=== PATIENT | female | born 1945 | race Caucasian/White ===

== ENCOUNTER 2016-11-30 12:29 | Inpatient (IN) | payer MEDICARE ==
[2016-11-30] MEDS ORDERED: Sodium Chloride 0.9% 10 ML Syringe FLUSH PRN (13:02)
[2016-11-30] MEDS ORDERED: Ondansetron 4 MG/2 ML SDV IVPUSH PRN (13:15)
[2016-11-30] MEDS ORDERED: Iopamidol 612 MG/ML 100 ML Bottle IV PRN (13:30)
[2016-11-30] MEDS ORDERED: Sodium Chloride 0.9% 75 ML IV SCH (13:30)
[2016-11-30] MEDS ORDERED: Iohexol 300 MG/ML 30 ML Bottle PO ONE (13:44)
[2016-11-30] MEDS ORDERED: Iohexol 647 MG/ML 10 ML SDV PO ONE (14:15)
[2016-11-30] MEDS ORDERED: MVI, Adult with Vitamin K 10 ML, Chromium/Copper/Mang/Selen/Zn 1 ML in Dextrose 5%-Lact... IV ONE ×3 (16:00)
[2016-12-01] MEDS: Dextrose 5%-Lactated Ringers 1,000 ML IV SCH (02:33)
--- NOTE | 2016-12-01 08:37 | PN ---
DATE OF SERVICE: 12/01/2016 SUBJECTIVE: Stephanie did report abdominal pain after eating, in her right mid and lower quadrant. She has had no nausea or vomiting. Her oral intake was 1045. Urine output was 2125. CT scan was completed, and Radiology report was negative. REVIEW OF SYSTEMS: Remainder of review of systems negative for any pertinent positives and negatives. OBJECTIVE: GENERAL: Stephanie Winston is a 71-year-old female. She is alert and orientated. VITAL SIGNS: TPR 97.2, 63, 18, blood pressure 169/79. HEENT: Negative. NECK: Supple. HEART: Regular rate and rhythm. LUNGS: Clear. ABDOMEN: Remains to be tender in the right mid and lower quadrants. Extremities without peripheral edema. NEUROLOGIC: Intact. SKIN: Without rash. ASSESSMENT: Right lower quadrant abdominal pain, nausea and vomiting, status post Jus-en-Y gastric bypass surgery, malabsorption due to intolerance, vitamin B deficiency, vitamin D deficiency, lymphedema of right lower extremity and weight loss. PLAN: 1. N.p.o. 2. Schedule EGD with possible biopsies. 3. Case to follow. 4. IV sedation, Vamshi Wallace MD. 5. Robinul 0.4 mg IV on-call to OR. 6. We will evaluate and orders to be written post EGD. Aylin Rankin PA-C /[id number]
[2016-12-01] MEDS ORDERED: Glycopyrrolate 0.2 MG/ML 2 ML SYRINGE IVPUSH ONE (09:00)
[2016-12-01] MEDS ORDERED: Propofol 200 MG/20 ML SDV ONE (09:14)
[2016-12-01] MEDS ORDERED: fentaNYL 100 MCG/2 ML SDV ONE (09:14)
[2016-12-01] MEDS ORDERED: Midazolam 1 MG/ML 2 ML SDV ONE (09:14)
[2016-12-01] MEDS ORDERED: Lactated Ringers 1,000 ML ONE (10:22)
[2016-12-01] MEDS ORDERED: Sodium Chloride 0.9% 1,000 ML IV ONE (12:00)
[2016-12-01] MEDS ORDERED: Iron Sucrose Complex 500 MG in Sodium Chloride 0.9% 250 ML IV SCH (12:00)
[2016-12-01] MEDS: Lidocaine 2% 60 ML, Alum Hydrox/Mag Hydrox/Simeth 360 ML PO SCH ×4 (12:24→17:01)
[2016-12-01] MEDS ORDERED: Cyanocobalamin (Vitamin B12) 1,000 MCG/ML SDV IM ONE (13:00)
[2016-12-01] MEDS: Magnesium Sulfate/Water 2 GM in Premix Bag 1 BAG IV SCH ×2 (17:44→22:57)
[2016-12-02] MEDS: Dextrose 5%-Lactated Ringers 1,000 ML IV SCH (02:16)
[2016-12-02] MEDS: Magnesium Sulfate/Water 2 GM in Premix Bag 1 BAG IV SCH (03:23)
[2016-12-02] MEDS: Lidocaine 2% 60 ML, Alum Hydrox/Mag Hydrox/Simeth 360 ML PO SCH ×4 (07:36→12:01)
[2016-12-02] MEDS ORDERED: Sodium Chloride 0.9% 400 ML IV ONE (08:30)
[2016-12-02] MEDS ORDERED: Iron Sucrose Complex 500 MG in Sodium Chloride 0.9% 250 ML IV ONE (09:00)
[2016-12-02] MEDS ORDERED: Sodium Chloride 0.9% 1,000 ML IV ONE (12:00)
[2016-12-02 12:06] VITALS: BP 162/81
--- NOTE | 2016-12-03 04:28 | DISCH ---
ADMISSION DIAGNOSES: 1. Right lower quadrant abdominal pain. 2. Nausea and vomiting. 3. Lymphedema, right lower leg. 4. Jus-en-Y gastric bypass surgery. 5. Unspecified surgical malabsorption. 6. Vitamin B12 deficiency. 7. Vitamin D deficiency. 8. Weight loss. 9. Low ferritin of 8. DISCHARGE DIAGNOSES: 1. Status post esophagogastroduodenoscopy. 2. Low ferritin. 3. Resolution of right lower quadrant abdominal pain. 4. Status post Jus-en-Y gastric bypass surgery. 5. Unspecified surgical malabsorption. 6. B12 deficiency. 7. Vitamin D deficiency. 8. Lymphedema of right lower extremity. HISTORY: Stephanie was admitted on 11/30/2016 for above diagnosis. She had a CT scan, which was negative and an EGD. She also received Venofer 500 mg IV on 12/01/2016 and the 2nd dose on 12/02/2016. Her vitamins were replaced as well as her magnesium. REVIEW OF SYSTEMS: GENERAL: She has had no fever, chills, or night sweats. SKIN: No rash, changes in moles or birthmarks. HEENT: No headache, dizziness, or blurred vision. CARDIOVASCULAR: No chest pain or palpitations. RESPIRATORY: No cough. ABDOMEN: She did have one episode of nausea with an emesis after eating chicken, otherwise her oral intake has been adequate at 10:45 a.m. She also has been taking the magic mouthwash before meals, which has helped with her symptoms. ENDOCRINE: Negative. HEMATOLOGIC: As above. Low ferritin of 8. EXTREMITIES: Right leg lymphedema, no change. : Negative. MUSCULOSKELETAL: Negative. NEURO: No vertigo. PSYCHIATRY: No anxiety or depression. The remainder of review of systems negative for any pertinent positives and negatives. OBJECTIVE: GENERAL: Stephanie Winston is a 71-year-old female. She is alert and oriented. Color pale. VITAL SIGNS: Height 5 feet 2.99 inches, weight is 157 pounds, TPR is 97.9, 72, 14, blood pressure is 154/84. HEENT: Negative. NECK: Supple. HEART: Regular rate and rhythm. LUNGS: Clear. ABDOMEN: Soft and nontender. EXTREMITIES: Reveal markedly right leg lymphedema. Left is negative. NEURO: Intact. SKIN: Without rash. PSYCHIATRIC: Negative. DISPOSITION: Discharged to home. CONDITION: Stable and improving. FOLLOWUP APPOINTMENT: With Aylin Rankin PA-C, on 12/14/2016 at 11:00 a.m. DISCHARGE MEDICATIONS: 1. New prescriptions are diphenhydramine, lidocaine, nystatin 1-2 tablespoons oral every 2 hours p.r.n. abdominal pain. 2. Vitron-C 1 p.o. daily. 3. Magnesium oxide 400 mg oral daily. 4. Zofran 4 mg oral q.6 hours p.r.n. nausea. 5. She is to resume her post bariatric vitamin regime. A vitamin sheet was given. DIET AFTER DISCHARGE: Usual diet as tolerated. Drink 8 to 10 glasses a day. ACTIVITY: As tolerated. Driving after discharge, may drive. Shower bathing, may shower. Notify provider if any fever, increased pain, nausea, or vomiting.
--- NOTE | 2016-12-04 15:03 | OR ---
DATE OF PROCEDURE: 12/01/2016 PREOPERATIVE DIAGNOSIS: Postprandial upper abdominal pain. POSTOPERATIVE DIAGNOSIS: Grossly normal upper gastrointestinal endoscopic examination status post Jus-en-Y gastric bypass. OPERATIVE PROCEDURE: Upper gastrointestinal endoscopy. ANESTHESIA: IV sedation. INDICATION FOR PROCEDURE: This is a 71-year-old admitted with history of gastric bypass and postprandial upper abdominal pain. Plan is to proceed with upper GI endoscopy with biopsies as indicated. Potential risks including bleeding and perforation were discussed, and the patient wishes to proceed. DETAILS OF PROCEDURE: The patient was taken to the operating room and placed in the left lateral decubitus position. IV sedation was administered after which the upper GI endoscope was passed orally through the length of esophagus and into the gastric pouch, from there through the gastrojejunostomy roughly 20 cm into the Jus limb. Overall, exam was entirely normal. There were no areas of inflammation or stricturing throughout the exam. The scope was then withdrawn. The above findings reconfirmed. Plan will be to give the patient a trial of Xylocaine and Mylanta mixture pre-meal to see if that helps with some of the discomfort that she is having. It is possible she is having some discomfort despite the normal endoscopic examination related to some acid exposure in the upper GI tract. If this fails to resolve the issue, we will likely need to proceed with a diagnostic laparoscopy in the next day or so. We will see how that trial works, however, before planning that next step. It is noted that the patient's ferritin is quite low at 8, and she will be receiving Venofer 500 mg today as well as tomorrow to replenish her iron stores. Vamshi Wallace MD /[id number]
== END 2016-12-02 13:20 | disposition home or self-care (01) | DRG 392 ==
LOC: JP.2SS 12:29
PROVIDERS: ADMIT Surgery; ATTEND Surgery
PROC: 0DJ08ZZ Inspection of Upper Intestinal Tract, Via Natural or Artificial Opening Endoscopic (ICD-10-PCS; principal; 2016-12-01)
DX: R10.31 Right lower quadrant pain (principal); K90.49 Malabsorption due to intolerance, not elsewhere classified; K21.9 Gastro-esophageal reflux disease without esophagitis; R79.89 Other specified abnormal findings of blood chemistry; E53.8 Deficiency of other specified B group vitamins; E55.9 Vitamin D deficiency, unspecified; I89.0 Lymphedema, not elsewhere classified; E66.01 Morbid (severe) obesity due to excess calories; Z68.27 Body mass index [BMI] 27.0-27.9, adult; J45.909 Unspecified asthma, uncomplicated; I10 Essential (primary) hypertension; R63.4 Abnormal weight loss; Z98.84 Bariatric surgery status
CPT/HCPCS: 36415; 74177; 80053; 82306; 82728; 82746; 83735; 84100; 84425; 85027; A9270-GY; J1756; J2250; J2704; J3010; J3420; J3475; J7030; J7040; J7042; J7050; J7120; Q9967